=== PATIENT | male | born 1955 | race Caucasian/White ===

== ENCOUNTER → 2020-05-21 | Outpatient (CLI) | payer BC | LOC: ZCOL.LAB 16:58 | DX: R50.9 Fever, unspecified (principal); Z20.828 Contact with and (suspected) exposure to other viral communicable diseases ==

== ENCOUNTER → 2024-07-25 | Outpatient (CLI) | payer MEDICARE | LOC: COL.RAD 12:01 | DX: N50.89 Other specified disorders of the male genital organs (principal); I86.1 Scrotal varices ==